=== PATIENT | male | born 1995 | race African-American/Black ===

== ENCOUNTER 2022-10-14 21:41 | Emergency (ER) | payer BC | END 2022-10-14 23:17 | disposition home or self-care (01) | LOC: ERS 21:41 | DX: U07.1 COVID-19 (principal) | CPT/HCPCS: 99281; U0003; U0005 ==

== ENCOUNTER 2022-10-30 09:34 | Emergency (ER) | payer BC ==
[2022-10-30] MEDS ORDERED: Ketorolac Tromethamine 30 MG/ML VIAL ONE (11:38)
== END 2022-10-30 14:46 | disposition home or self-care (01) ==
LOC: ERS 09:34
DX: S39.012A Strain of muscle, fascia and tendon of lower back, initial encounter (principal); X58.XXXA Exposure to other specified factors, initial encounter
CPT/HCPCS: 96372; 99283; J1885

== ENCOUNTER 2023-08-10 12:00 | Emergency (ER) | payer BC, OTHER ==
[2023-08-10] MEDS ORDERED: HYDROcodone/Acetaminophen 10/325 mg Tablet ONE (12:40)
== END 2023-08-10 13:57 | disposition home or self-care (01) ==
LOC: ERS 12:00
DX: S00.33XA Contusion of nose, initial encounter (principal); Y04.8XXA Assault by other bodily force, initial encounter
CPT/HCPCS: 70486